=== PATIENT | male | born 1980 ===

== ENCOUNTER 2017-01-01 10:28 | Emergency (ER) | payer MEDICAID, OTHER ==
[2017-01-01 10:32] VITALS: BP 128/66; RESP 20; TEMP 97.7; O2SAT 97; BMI 25.7
[2017-01-01 11:58] LABS: BASO % 0.7 % (0.0-2.0); EOS # 0.1 K/uL (0.0-0.7); EOS % 2.8 % (0.0-4.0); HEMATOCRIT 44.5 % (35.0-51.0); LYMPH # 0.8 K/uL (1.0-4.3); LYMPH % 18.6 % (20.0-40.0); MEAN CELL VOLUME 88.6 fl (80.0-94.0); MEAN CORPUSCULAR HEMOGLOBIN 30.2 pg (27.0-31.0); MEAN CORPUSCULAR HGB CONC 34.1 g/dL (33.0-37.0); MEAN PLATELET VOLUME 8.3 fl (7.2-11.7); MONO # 0.3 K/uL (0.0-0.8); MONO % 7.2 % (0.0-10.0); NEUT % 70.7 % (50.0-75.0); NRBC % 0.3 % (0.0-0.0); RED CELL DISTRIBUTION WIDTH 12.7 % (11.5-14.5); WHITE BLOOD COUNT 4.2 K/uL (4.8-10.8)
[2017-01-01 12:22] LABS: ALB/GLOB RATIO 1.8 (1.0-2.1); ALKALINE PHOSPHATASE 56 U/L (38-126); ALT/SGPT 34 U/L (21-72); AST/SGOT 21 U/L (17-59); BILIRUBIN,TOTAL 1.9 mg/dl (0.2-1.3); BLOOD UREA NITROGEN 17 mg/dl (9-20); CALCIUM 9.6 mg/dL (8.4-10.2); CARBON DIOXIDE 26 mmol/L (22-30); CHLORIDE 106 mmol/L (98-107); GFR AFRICAN-AMERICAN > 60; GLUCOSE,RANDOM 91 mg/dL (75-110); LIPASE 121 U/L (23-300); POTASSIUM 4.3 MMOL/L (3.6-5.0); SODIUM 144 mmol/l (132-148); TOTAL PROTEIN 7.4 G/DL (6.3-8.2)
--- NOTE | 2017-01-01 12:53 | RAD ---
HISTORY: abdominal spasms COMPARISON: No prior. FINDINGS: BOWEL: Normal. No obstruction. No free air seen on this limited supine exam. Note that supine views are less sensitive for free intraperitoneal air as compared to erect views of the abdomen. BONES: Osseous structures appear grossly unremarkable OTHER FINDINGS: None. IMPRESSION: No evidence of acute mechanical bowel obstruction.
--- NOTE | 2017-01-01 13:30 | ED PDOC ---
HPI: Abdomen Time Seen by Provider: 01/01/17 10:46 Chief Complaint (Nursing): Abdominal Pain Chief Complaint (Provider): Abdominal Spasms History Per: Patient History/Exam Limitations: no limitations Onset/Duration Of Symptoms: Days (x4) Additional Complaint(s): Alphonse Villalba is a 36 year old male presenting to the ED for an evaluation of intermittent belly spasms occurring for 4 days prior to arrival. The patient states his spasms were worse on Wednesday, but are better today. He denies any pain, nausea, vomiting, diarrhea, fever, urinary symptoms, any medical problems , or any previous surgical history. PMD: None Provided Past Medical History Reviewed: Historical Data, Nursing Documentation, Vital Signs Vital Signs: Last Vital Signs Temp 97.7 F 01/01/17 10:30 Pulse 53 L 01/01/17 10:30 Resp 20 01/01/17 10:30 BP 128/66 01/01/17 10:30 Pulse Ox 97 01/01/17 13:31 - Medical History PMH: No Chronic Diseases - Surgical History Surgical History: No Surg Hx - Family History Family History: States: No Known Family Hx - Social History Current smoker - smoking cessation education provided: Yes Alcohol: Social Drugs: Denies - Home Medications Home Medications: Ambulatory Orders Medication Instructions Recorded Dicyclomine [Dicyclomine HCl] 10 mg PO BID PRN #10 cap 01/01/17 - Allergies Allergies/Adverse Reactions: Allergies Allergy/AdvReac Type Severity Reaction Status Date / Time No Known Allergies Allergy Verified 01/01/17 10:48 Review of Systems ROS Statement: Except As Marked, All Systems Reviewed And Found Negative Constitutional: Negative for: Fever Gastrointestinal: Positive for: Other (abdominal spasms). Negative for: Nausea , Vomiting, Abdominal Pain, Diarrhea Genitourinary Male: Negative for: Dysuria, Frequency, Incontinence, Hematuria Physical Exam - Reviewed Nursing Documentation Reviewed: Yes Vital Signs Reviewed: Yes - Physical Exam Appears: Positive for: Non-toxic, No Acute Distress Head Exam: Positive for: ATRAUMATIC, NORMOCEPHALIC Skin: Positive for: Normal Color, Warm, Dry Eye Exam: Positive for: Normal appearance, EOMI ENT: Positive for: Normal ENT Inspection Neck: Positive for: Normal, Painless ROM, Supple Cardiovascular/Chest: Positive for: Regular Rate, Rhythm. Negative for: Edema, Murmur Respiratory: Positive for: Normal Breath Sounds. Negative for: Respiratory Distress Gastrointestinal/Abdominal: Positive for: Normal Exam, Soft. Negative for: Tenderness Back: Positive for: Normal Inspection Extremity: Positive for: Normal ROM Neurologic/Psych: Positive for: Alert, Oriented (x3). Negative for: Motor/ Sensory Deficits - Laboratory Results Result Diagrams: 01/01/17 11:45 01/01/17 11:45 - ECG O2 Sat by Pulse Oximetry: 97 (RA) Pulse Ox Interpretation: Normal Medical Decision Making Medical Decision Making: Time: 10:46 Impression: Abdominal Spasms Plan: * CMP * Lipase * CBC (with differential) * [RAD] Abdomen (Flat Plate) 1 View * Bentyl 10 mg PO * Reevaluation Scribe Attestation: Documented by Haley Monreal, acting as a scribe for Cooper Thapa MD. Provider Scribe Attestation: All medical record entries made by the Scribe were at my direction and personally dictated by me. I have reviewed the chart and agree that the record accurately reflects my personal performance of the history, physical exam, medical decision making, and the department course for this patient. I have also personally directed, reviewed, and agree with the discharge instructions and disposition. Disposition - Clinical Impression Clinical Impression: Abdominal discomfort - Patient ED Disposition Is Patient to be Admitted: No Doctor Will See Patient In The: Office Counseled Patient/Family Regarding: Studies Performed, Diagnosis, Need For Followup - Disposition Referrals: [facility] [Outside] Disposition: Routine/Home Disposition Time: 13:33 Condition: GOOD Prescriptions: Dicyclomine [Dicyclomine HCl] 10 mg PO BID PRN #10 cap PRN Reason: Irritable Bowel Symptoms Instructions: Abdominal Pain (ED)
[2017-01-01 13:47] VITALS: PULSE 60
== END 2017-01-01 13:46 | disposition home or self-care (01) ==
LOC: H.ER 10:28
DX: R10.9 Unspecified abdominal pain (principal)

== ENCOUNTER 2017-01-28 09:51 | Emergency (ER) | payer MEDICAID, OTHER ==
[2017-01-28 10:02] VITALS: BP 146/71; PULSE 61; TEMP 98; O2SAT 98; BMI 25.0
[2017-01-28] MEDS ORDERED: Sodium Chloride 0.9% 1,000 ML IV STA (10:26)
[2017-01-28 10:28] VITALS: RESP 19
--- NOTE | 2017-01-28 10:29 | ED PDOC ---
HPI: Abdomen Time Seen by Provider: 01/28/17 10:21 Chief Complaint (Nursing): Abdominal Pain Chief Complaint (Provider): Abd pain History Per: Patient History/Exam Limitations: no limitations Onset/Duration Of Symptoms: Days (3) Outside of [place] travel?: No Current Symptoms Are (Timing): Still Present Additional Complaint(s): Pt. with abd pain epigastric for 3 days. Nausea, vomit, nonbloody since yesterday. No new food or drinks. No travel. No weakness, testicular pain, headaches, dizziness. Here 3 weeks ago for abd cramps and felt better after tx , dc. Past Medical History Reviewed: Nursing Documentation, Vital Signs Vital Signs: Last Vital Signs Temp 98 F 01/28/17 10:24 Pulse 61 01/28/17 10:24 Resp 19 01/28/17 10:24 BP 146/71 01/28/17 10:24 Pulse Ox 98 01/28/17 11:45 - Medical History PMH: No Chronic Diseases - Surgical History Surgical History: No Surg Hx - Family History Family History: States: Unknown Family Hx - Living Arrangements Living Arrangements: With Family - Social History Alcohol: Occasional Drugs: Denies - Home Medications Home Medications: Ambulatory Orders Medication Instructions Recorded Dicyclomine [Dicyclomine HCl] 10 mg PO BID PRN #10 cap 01/01/17 - Allergies Allergies/Adverse Reactions: Allergies Allergy/AdvReac Type Severity Reaction Status Date / Time No Known Allergies Allergy Verified 01/01/17 10:48 Review of Systems ROS Statement: Except As Marked, All Systems Reviewed And Found Negative Gastrointestinal: Positive for: Nausea, Vomiting, Abdominal Pain Physical Exam - Reviewed Nursing Documentation Reviewed: Yes Vital Signs Reviewed: Yes - Physical Exam Appears: Positive for: Non-toxic, No Acute Distress Head Exam: Positive for: ATRAUMATIC, NORMAL INSPECTION, NORMOCEPHALIC Skin: Positive for: Normal Color, Warm, DRY Eye Exam: Positive for: EOMI, Normal appearance, PERRL ENT: Positive for: Normal ENT Inspection Neck: Positive for: Normal, Painless ROM Cardiovascular/Chest: Positive for: Regular Rate, Rhythm Respiratory: Positive for: CNT, Normal Breath Sounds Gastrointestinal/Abdominal: Positive for: Bowel Sounds, Soft, Tenderness (mild epigastric) Back: Positive for: Normal Inspection. Negative for: L CVA Tenderness, R CVA Tenderness Extremity: Positive for: Normal ROM. Negative for: Tenderness, Pedal Edema Neurologic/Psych: Positive for: Alert, Oriented - Laboratory Results Result Diagrams: 01/28/17 10:38 01/28/17 10:38 Interpretation Of Abn Labs: no acute - ECG O2 Sat by Pulse Oximetry: 98 Pulse Ox Interpretation: Normal - Progress ED Course And Treament: 1146: Stable. AAOx3. Pain free. Tolerated PO. FU with pcp. Disposition - Clinical Impression Clinical Impression: Abdominal pain - Disposition Referrals: [facility] [Outside] - 02/01/17 Disposition: Routine/Home Disposition Time: 11:47 Condition: STABLE Additional Instructions: Return if not better in 3 days. Instructions: Acute Abdominal Pain (ED) Forms: [facility] ([place]), [facility] ED School/Work Excuse
[2017-01-28 10:46] LABS: BASO % 0.6 % (0.0-2.0); EOS # 0.1 K/uL (0.0-0.7); EOS % 3.2 % (0.0-4.0); LYMPH % 21.4 % (20.0-40.0); MEAN CORPUSCULAR HEMOGLOBIN 29.8 pg (27.0-31.0); MEAN CORPUSCULAR HGB CONC 33.8 g/dL (33.0-37.0); MEAN PLATELET VOLUME 8.8 fl (7.2-11.7); MONO # 0.3 K/uL (0.0-0.8); MONO % 6.2 % (0.0-10.0); NEUT # 3.2 K/uL (1.8-7.0); NEUT % 68.6 % (50.0-75.0); NRBC % 0.1 % (0.0-0.0); RED CELL DISTRIBUTION WIDTH 12.5 % (11.5-14.5); WHITE BLOOD COUNT 4.6 K/uL (4.8-10.8)
[2017-01-28 11:01] LABS: ALB/GLOB RATIO 1.8 (1.0-2.1); ALKALINE PHOSPHATASE 50 U/L (38-126); ALT/SGPT 54 U/L (21-72); AST/SGOT 30 U/L (17-59); BLOOD UREA NITROGEN 20 mg/dl (9-20); CALCIUM 9.2 mg/dL (8.4-10.2); CARBON DIOXIDE 24 mmol/L (22-30); CHLORIDE 108 mmol/L (98-107); GFR AFRICAN-AMERICAN > 60; GLUCOSE,RANDOM 90 mg/dL (75-110); LIPASE 95 U/L (23-300); POTASSIUM 4.2 MMOL/L (3.6-5.0); SODIUM 143 mmol/l (132-148)
== END 2017-01-28 12:01 | disposition home or self-care (01) ==
LOC: SUPCPDRO 09:51 → H.ER 09:51
DX: R11.2 Nausea with vomiting, unspecified (principal)
CPT/HCPCS: 80053; 83690; 85025; 96374; 99283; J2765; J7040

== ENCOUNTER 2017-11-05 09:56 | Emergency (ER) | payer OTHER, MEDICAID ==
[2017-11-05 09:56] VITALS: BMI 25.0
[2017-11-05] MEDS ORDERED: Sodium Chloride 0.9% 1,000 ML IV STA (10:46)
--- NOTE | 2017-11-05 11:08 | ED PDOC ---
HPI: Abdomen Time Seen by Provider: 11/05/17 10:13 Chief Complaint (Nursing): Abdominal Pain Chief Complaint (Provider): Abdominal pain History Per: Patient Onset/Duration Of Symptoms: Days Outside of [place] travel?: No Current Symptoms Are (Timing): Intermittent Episodes Severity: Severe Pain Scale Rating Of: 10 Location Of Pain/Discomfort: RUQ, RLQ, LUQ, LLQ Quality Of Discomfort: Cramping, "Pain" Associated Symptoms: Nausea. denies: Fever, Vomiting, Back Pain, Chest Pain, Constipation, Urinary Symptoms Exacerbating Factors: Movement, Food Alleviating Factors: Other (bowel movements and abdominal massage) Last Bowel Movement: Today Additional Complaint(s): 37 yo M with pno significant past medical history presents to the ED with Abdominal cramping. He reports that 4 days prior, while having his hair braided , he experienced sudden onset of L lower quadrant pain radiating to LUQ, transverse, RUQ and down to RLQ. Pt reports cramping pain radiated 5/10. Alleviated with bowel movements, which are small in quantity, soft, non diarrhea , non bloody, no mucous; and cannabis. Abdominal pain occurs approximately every 10-15 minutes. Denies recent abdominal trauma or change in diet. Denies recent illness. He partakes in regular diet, however, due to discomfort, he has changed to soup diet. He mentions having a history of epigastric abdominal spasms treated in the ED with antispasmodics and IVF. No nausea, vomiting, back pain, chest pain, or shortness of breath. No change in diet. Pmd: none pmhx none famhx: CAD, bone marrow cancer, DM Soc: denies current smoking (smoked 5-6 cigarettes/day, 4 months ago), denies alcohol. Reports use of cannabis recreationally. Lives with family surg: none Past Medical History Vital Signs: Last Vital Signs Temp 98.4 F 11/05/17 10:19 Pulse 85 11/05/17 10:19 Resp 18 11/05/17 10:19 BP 116/73 11/05/17 10:19 Pulse Ox 99 11/05/17 11:57 - Medical History PMH: No Chronic Diseases - Surgical History Surgical History: No Surg Hx - Family History Family History: States: CAD, Diabetes, Other Other Family History: bone marrow cancer - Living Arrangements Living Arrangements: With Family - Social History Current smoker - smoking cessation education provided: No Ex-Smoker (has not smoked in the last 12 months): Yes Alcohol: None Drugs: Cannabis - Home Medications Home Medications: Ambulatory Orders Medication Instructions Recorded Dicyclomine [Dicyclomine HCl] 10 mg PO BID PRN #10 cap 01/01/17 Dicyclomine [Dicyclomine HCl] 10 mg PO DAILY PRN 5 Days cap 11/05/17 - Allergies Allergies/Adverse Reactions: Allergies Allergy/AdvReac Type Severity Reaction Status Date / Time No Known Allergies Allergy Verified 01/01/17 10:48 Review of Systems ENT: Negative for: Nose Discharge Respiratory: Negative for: Cough, Shortness of Breath Gastrointestinal: Positive for: Nausea, Abdominal Pain. Negative for: Vomiting , Diarrhea, Constipation, Melena, Hematochezia, Hematemesis Genitourinary Male: Negative for: Dysuria, Hematuria Neurological: Negative for: Altered Mental Status, Headache Physical Exam - Reviewed Vital Signs Reviewed: Yes - Physical Exam Appears: Positive for: No Acute Distress Head Exam: Positive for: ATRAUMATIC, NORMAL INSPECTION Eye Exam: Positive for: EOMI Neck: Positive for: Painless ROM Cardiovascular/Chest: Positive for: Regular Rate, Rhythm. Negative for: Murmur Respiratory: Positive for: Normal Breath Sounds. Negative for: Wheezing Gastrointestinal/Abdominal: Positive for: Bowel Sounds, Soft, Tenderness ( diffuse mild abdominal pain; no tenderness on distraction). Negative for: Organomegaly, Mass, Distended, Guarding, Rebound Back: Negative for: L CVA Tenderness, R CVA Tenderness Neurologic/Psych: Positive for: Alert, data sme II-XII, Oriented. Negative for: Aphasia - Laboratory Results Result Diagrams: 11/05/17 11:26 11/05/17 11:26 - ECG O2 Sat by Pulse Oximetry: 99 - Progress ED Course And Treament: 37 yo M with recent history of abdominal spasm presents with abdominal pain. -CBC/CMP -1L NS bolus -Bentyl for pain/spasm -pepcid -Lipase -Monitor vitals and progression of symptoms 11:58 Pt stable and asymptomatic. Labs reviewed Benefit from bentyl, pepcid and IVF DC home with ER precautions Pt encouraged to find PMD for f/u care. Case dw Dr Jason Betancourt MD PGY2 Disposition - Clinical Impression Clinical Impression: Abdominal pain - Patient ED Disposition Is Patient to be Admitted: No - Disposition Referrals: [facility] [Outside] - 11/08/17 Disposition Time: 11:59 Condition: STABLE Additional Instructions: Return if not better in 3 days. Prescriptions: Dicyclomine [Dicyclomine HCl] 10 mg PO DAILY PRN 5 Days cap PRN Reason: Pain, Severe (8-10) Instructions: Stomach Ache and Stomach Upset Forms: [facility] ED School/Work Excuse
[2017-11-05 11:35] LABS: BASO % 0.4 % (0.0-2.0); EOS # 0.1 K/uL (0.0-0.7); EOS % 1.4 % (0.0-4.0); LYMPH # 0.5 K/uL (1.0-4.3); LYMPH % 10.5 % (20.0-40.0); MEAN CORPUSCULAR HEMOGLOBIN 29.9 pg (27.0-31.0); MEAN CORPUSCULAR HGB CONC 34.4 g/dL (33.0-37.0); MEAN PLATELET VOLUME 8.7 fl (7.2-11.7); MONO # 0.6 K/uL (0.0-0.8); MONO % 12.7 % (0.0-10.0); NEUT # 3.6 K/uL (1.8-7.0); NRBC % 0.2 % (0.0-0.0); RBC 5.03 Mil/uL (4.40-5.90); RED CELL DISTRIBUTION WIDTH 12.7 % (11.5-14.5); WHITE BLOOD COUNT 4.8 K/uL (4.8-10.8)
[2017-11-05 11:45] LABS: ALB/GLOB RATIO 1.6 (1.0-2.1); ALBUMIN 4.3 g/dL (3.5-5.0); ALT/SGPT 26 U/L (21-72); AST/SGOT 20 U/L (17-59); BLOOD UREA NITROGEN 16 mg/dl (9-20); CALCIUM 9.1 mg/dL (8.4-10.2); GFR AFRICAN-AMERICAN > 60; GFR NON-AFRICAN AMERICAN > 60; LIPASE 107 U/L (23-300)
[2017-11-05 12:14] VITALS: RESP 19; TEMP 97
[2017-11-05 12:15] VITALS: BP 120/78; PULSE 82; O2SAT 98
== END 2017-11-05 12:15 | disposition home or self-care (01) ==
LOC: H.ER 09:56
DX: R10.9 Unspecified abdominal pain (principal); R11.0 Nausea
CPT/HCPCS: 80053; 83690; 85025; 96374; 99283; J2405; J7030

== ENCOUNTER 2017-11-07 12:19 | Emergency (ER) | payer MEDICAID, OTHER ==
[2017-11-07 12:19] VITALS: BMI 25.0
[2017-11-07 12:23] VITALS: BP 133/87; PULSE 95; RESP 16; TEMP 98.4; O2SAT 99
[2017-11-07] MEDS ORDERED: Sodium Chloride 0.9% 1,000 ML IV STA (12:43)
[2017-11-07 13:10] LABS: BASO % 0.5 % (0.0-2.0); EOS # 0.1 K/uL (0.0-0.7); EOS % 2.1 % (0.0-4.0); HEMOGLOBIN 14.8 g/dL (12.0-18.0); LYMPH # 0.5 K/uL (1.0-4.3); LYMPH % 13.4 % (20.0-40.0); MEAN CELL VOLUME 85.3 fl (80.0-94.0); MEAN CORPUSCULAR HEMOGLOBIN 30.1 pg (27.0-31.0); MEAN CORPUSCULAR HGB CONC 35.3 g/dL (33.0-37.0); MEAN PLATELET VOLUME 8.2 fl (7.2-11.7); MONO # 0.6 K/uL (0.0-0.8); MONO % 17.1 % (0.0-10.0); NEUT # 2.4 K/uL (1.8-7.0); NEUT % 66.9 % (50.0-75.0); NRBC % 0.4 % (0.0-0.0); RBC 4.93 Mil/uL (4.40-5.90); RED CELL DISTRIBUTION WIDTH 12.4 % (11.5-14.5); WHITE BLOOD COUNT 3.6 K/uL (4.8-10.8)
[2017-11-07 13:19] LABS: ALB/GLOB RATIO 1.7 (1.0-2.1); ALBUMIN 4.2 g/dL (3.5-5.0); ALT/SGPT 34 U/L (21-72); AST/SGOT 19 U/L (17-59); BLOOD UREA NITROGEN 11 mg/dl (9-20); CALCIUM 9.3 mg/dL (8.4-10.2); GFR AFRICAN-AMERICAN > 60; GFR NON-AFRICAN AMERICAN > 60; LIPASE 62 U/L (23-300)
--- NOTE | 2017-11-07 14:45 | ED PDOC ---
HPI: Abdomen Time Seen by Provider: 11/07/17 12:29 Chief Complaint (Nursing): Abdominal Pain Chief Complaint (Provider): Abdominal Pain History Per: Patient History/Exam Limitations: no limitations Onset/Duration Of Symptoms: Days (z7) Current Symptoms Are (Timing): Still Present Location Of Pain/Discomfort: RLQ, LLQ Quality Of Discomfort: Cramping Associated Symptoms: denies: Fever, Vomiting Additional Complaint(s): 37 y/o male presents to the ED complaining of intermittent abdominal cramping, onset one week ago. Patient states pain starts in the left lower quadrant then radiates up and around the abdomen ending at the right lower quadrant. Patient reports of taking bentyl with no improvement. Patient was seen here on Wednesday for similar symptoms and returns today for relief from the pain. Patient reports of having similar pain in the past but has never had a GI evaluation. Otherwise: (-) vomiting, (-) fever, (-) recent travel, (-) antibiotic use, (-) sick contacts. PMD: None Provided Past Medical History Reviewed: Historical Data, Nursing Documentation, Vital Signs Vital Signs: Last Vital Signs Temp 98.4 F 11/07/17 12:21 Pulse 95 H 11/07/17 12:21 Resp 16 11/07/17 12:21 BP 133/87 11/07/17 12:21 Pulse Ox 99 11/07/17 15:26 - Medical History PMH: No Chronic Diseases - Surgical History Surgical History: No Surg Hx - Family History Family History: States: Unknown Family Hx, CAD, Diabetes - Immunization History Hx Tetanus Toxoid Vaccination: No Hx Influenza Vaccination: No Hx Pneumococcal Vaccination: No - Home Medications Home Medications: Ambulatory Orders Medication Instructions Recorded Dicyclomine [Dicyclomine HCl] 10 mg PO BID PRN #10 cap 01/01/17 Dicyclomine [Dicyclomine HCl] 10 mg PO DAILY PRN 5 Days cap 11/05/17 - Allergies Allergies/Adverse Reactions: Allergies Allergy/AdvReac Type Severity Reaction Status Date / Time No Known Allergies Allergy Verified 01/01/17 10:48 Review of Systems ROS Statement: Except As Marked, All Systems Reviewed And Found Negative Constitutional: Negative for: Fever, Chills, Weakness Cardiovascular: Negative for: Chest Pain, Palpitations Respiratory: Negative for: Cough, Shortness of Breath Gastrointestinal: Positive for: Nausea, Abdominal Pain, Diarrhea. Negative for : Vomiting Genitourinary Male: Negative for: Dysuria, Frequency Musculoskeletal: Negative for: Neck Pain, Back Pain Skin: Negative for: Rash, Lesions Neurological: Negative for: Weakness, Numbness Physical Exam - Reviewed Vital Signs Reviewed: Yes - Physical Exam Appears: Positive for: Well, Non-toxic, No Acute Distress Head Exam: Positive for: ATRAUMATIC, NORMAL INSPECTION, NORMOCEPHALIC Skin: Positive for: Normal Color, Warm, DRY Eye Exam: Positive for: EOMI, Normal appearance, PERRL ENT: Positive for: Normal ENT Inspection Neck: Positive for: Normal, Painless ROM, Supple Cardiovascular/Chest: Positive for: Regular Rate, Rhythm. Negative for: Murmur Respiratory: Positive for: Normal Breath Sounds. Negative for: Rales, Rhonchi, Wheezing Gastrointestinal/Abdominal: Positive for: Normal Exam, Soft, Tenderness (+mild generalized abdominal tenderness). Negative for: Organomegaly, Mass, Distended , Guarding, Rebound Back: Positive for: Normal Inspection. Negative for: L CVA Tenderness, R CVA Tenderness Extremity: Positive for: Normal ROM. Negative for: Tenderness, Deformity, Swelling Neurologic/Psych: Positive for: Alert, co founder and chief strategy officer II-XII (intact), Oriented (x3). Negative for: Motor/Sensory Deficits - Laboratory Results Result Diagrams: 11/07/17 12:55 11/07/17 12:55 - ECG O2 Sat by Pulse Oximetry: 99 Medical Decision Making Medical Decision Making: Previous medical records reviewed, patient last seen in this ED on 11/05/17 for similar complaints and had normal labs done. Plan : - Labs - IV - NS bolus IV - Toradol IV / Bentyl PO - Udip Udip (-) Labs reviewed and wnl. On re-evaluation, patient reports improvement of symptoms, denies any abdominal pain, nausea or diarrhea while in the ER. On exam, patient remains AAOx3, in no acute distress. Abdomen soft, non-tender, no rebound or guarding. VSS. Lab results d/w the patient. Considering patient's history and return to the ER for recurrent symptoms, CT A/P offered to the patient, which he is refusing. 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 He adds that he has no abdominal pain at this time and he feels better, hence he feels comfortable going home and that he intends to follow up with a GI MD for further evaluation of his symptoms, and that he will return to the ER if he changes his mind or if his symptoms become worse. Patient instructed to follow-up with referral provided - GI in 1-2 days without fail. Advised to continue taking bentyl as advised for abdominal pain. Return to the emergency room at any time for any new or worsening symptoms. Patient states he fully agrees with and understands discharge instructions. States that he agrees with the plan and disposition. Verbalized and repeated discharge instructions and plan. I have given the patient opportunity to ask any additional questions. Scribe Attestation: Documented by Chase Aponte acting as a scribe for Daniela Plasencia PA-C. Provider Scribe Attestation: All medical record entries made by the Scribe were at my direction and personally dictated by me. I have reviewed the chart and agree that the record accurately reflects my personal performance of the history for this patient. I have also personally directed, reviewed, and agree with the discharge instructions and disposition. Disposition - Clinical Impression Clinical Impression: Abdominal pain, Diarrhea Counseled Patient/Family Regarding: Studies Performed, Diagnosis, Need For Followup - Disposition Referrals: Calos Gil MD [Staff Provider] - Disposition: Routine/Home Disposition Time: 14:45 Condition: STABLE Additional Instructions: Thank you for letting us take care of you today. You were treated for abdominal pain, diarrhea. The emergency medical care you received today was directed towards the acute presenting symptoms. Drink plenty of water, BRAT diet. Return to the Emergency Department at any time if symptoms worsen, do not improve, or if any other problems arise. Please contact your doctor in 2 days for re-evaluation and follow up / or call one of the physicians/clinics you have been referred to that are listed on the Patient Visit Information form that is included in your discharge packet. Bring any paperwork you were given at discharge with you along with any medications to your follow up visit. Our treatment cannot replace ongoing medical care by a primary care provider (PCP) outside of the emergency department. Thank you for allowing the [facility] team to be part of your care today. Instructions: Diarrhea in Adolescents and Adults, Acute Abdomen (Belly Pain), Adult (DC) Forms: [facility] ([place]), [facility] ED School/Work Excuse
== END 2017-11-07 15:05 | disposition home or self-care (01) ==
LOC: H.ER 12:19
DX: R19.7 Diarrhea, unspecified (principal); R10.9 Unspecified abdominal pain; Z82.49 Family history of ischemic heart disease and other diseases of the circulatory system
CPT/HCPCS: 80053; 83690; 85025; 96374; 99283; J1885; J7030